=== PATIENT | female | born 1980 | race Caucasian/White ===

== ENCOUNTER 2023-06-22 09:32 | Emergency (ER) | payer OTHER, SELFPAY ==
[2023-06-22 09:37] VITALS: BP 157/112
--- NOTE | 2023-06-22 10:18 | ED.GENMED ---
History of Present Illness
General
Chief Complaint: DVT/Possible Blood Clot
Source: patient
Exam Limitations: none
Time Seen by Provider: 06/22/23 09:56
Nursing documentation reviewed up to this point in time: agreed with
Travel History
Have you had any contact with someone who has COVID-19?: No
Do you have any symptoms of coronavirus? Fever > 100 degrees, chills, cough, shortness of breath, sore throat, loss of taste or smell, muscle aches, or headache?: No
History of Present Illness
History of Present Illness:
43-year-old female with a past medical history of hypertension who presents to the emergency room for evaluation of left foot pain. Patient reports yesterday morning she woke up with 'soreness' in the left foot that was relatively mild and since
then it has progressed to severe pain in the left foot to the point that she cannot bear weight or even move the foot without significant pain. Pain is more lateral than medial but really in the whole foot. She says that the foot is cool to touch
and looks discolored. She has not noticed any significant swelling. She denies any injury or trauma. She denies similar symptoms in the past. She denies any personal history of DVT/PE but says that her sister in her 40s from a pulmonary
embolism. Patient denies any chest pain or shortness of breath here.
Review of Systems
Review of Systems
All Other Systems: ROS reviewed and negative except as documented in HPI and ROS
Constitutional: Denies fever or chills
Respiratory: Denies cough or trouble breathing
Cardiac: Denies chest pain, palpitations or syncope
ABD/GI: Denies abdominal pain, nausea or vomiting
: Denies flank pain
Musculoskeletal: Reports other (Left foot pain); Denies neck pain or back pain
Neurological: Denies headache, weakness or numbness
Phy Exam
Physical Exam
Physical Exam:
General: Awake, alert, oriented x3; anxious
Head: Normocephalic, atraumatic
Eyes: Conjunctiva normal,
Throat: Airway intact, handling secretions
Neck: Trachea midline, supple without meningismus
Lungs: Clear to auscultation bilaterally, no wheezing, rales, rhonchi
Heart: Regular rate and rhythm, no murmurs, gallops, or rubs
Neuro: Cranial nerves grossly intact, speech fluid
Skin: no rash
Extremities: Left lower extremity cool to touch left midfoot to the lateral malleolus with delayed capillary refill on the left foot and slight purplish discoloration of the left foot in the same very localized distribution; she does have DP pulse
on the left by Doppler; she has no palpable cord; she does have exquisite tenderness of the lateral aspect of the left lower leg and foot but no significant edema in the left lower extremity; she has no erythema of the skin, no crepitus; she has
pain with passive dorsiflexion of the foot on the left; right lower extremity warm well-perfused no edema good pulses
Scores
Heart Failure Risk
Heart Failure Risk Score: Not Applicable
Heart Score for Chest Pain Patients
STEMI patient?: Not applicable
Withdrawal Assessment of Alcohol
Withdrawal Assessment Completed?: Not applicable
Course
Orders/Labs/Results
Orders:
Orders
06/22/23 10:06
Lower Ext Arterial & MARTI US [US Periph Art LOWER Ext w MARTI] Urgent
Comment:
Reason For Exam: painful, cool LLE
06/22/23 10:07
US Periph Venous LOWER Ext LT Urgent
Comment:
Reason For Exam: painful, cool LLE
06/22/23 10:17
Vascular Surgery Consult Urgent
Consulting Provider: David Montes
Was physician already notified: Yes
06/22/23 11:20
Complete Blood Count/With Diff Urgent
Comprehensive Metabolic Panel Urgent
PTT Urgent
Prothrombin Time Urgent
06/22/23 12:03
Potassium Chloride [KCl] 40 meq PO NOW STA
06/22/23 12:50
Potassium Chloride Powder [Klor-Con] 20 meq PO NOW STA
06/22/23 12:52
Potassium Chloride [KCl] 40 meq .ROUTE .STK-MED ONE
06/22/23 15:16
CR Foot - Left Min 3 Views Urgent
Comment:
Reason For Exam: foot pain
Abnormal Lab Results
06/22/23
11:20
MCH 31.2 H pg
(27.0-31.0)
MCHC 37.1 H g/dL
(33.0-37.0)
MPV 10.8 H fL
(7.4-10.4)
Absolute Monos (auto) 0.8 H 10^3/uL
(0.1-0.6)
Monocytes % 14.0 H %
(1.7-9.3)
Potassium 3.0 L mmol/L
(3.5-5.1)
Total Protein 8.3 H g/dl
(6.3-8.2)
06/22/23 11:20
06/22/23 11:20
Vital Signs
Initial and Last Documented VS:
Initial Vital Signs
Temp Pulse Resp BP Pulse Ox
37.0 C 95 18 157/112 98
06/22/23 09:37 06/22/23 09:37 06/22/23 09:37 06/22/23 09:37 06/22/23 09:37
Last Documented Vital Signs
Temp Pulse Resp BP Pulse Ox
37.0 C 95 18 157/112 98
06/22/23 09:37 06/22/23 09:37 06/22/23 09:37 06/22/23 09:37 06/22/23 09:37
MDM/Problems Addressed
Differential Diagnosis Includes:
Arterial occlusion, DVT, cellulitis, musculoskeletal injury, early shingles, Raynaud's
MDM/Problems Addressed:
43-year-old female presents for evaluation of atraumatic and progressing left foot pain. Foot is slightly discolored (purple to pale), cool to the touch with diminished pulses DP on the left; no edema. She is hypertensive otherwise normal vitals.
Discussed with vascular surgery for evaluation. Will send for arterial and venous ultrasound of the left lower extremity. IV placed usual labs sent off including a CBC and a CMP, coags. Monitor closely reassess after the above.
Labs reviewed: CBC shows no clinically significant abnormalities. CMP shows hyponatremia repleted p.o. Venous and arterial ultrasounds normal. Vascular surgery did assess at bedside they do not suspect any vascular etiology to her symptoms.
Clinical reassessment she says her symptoms actually have improved greatly. For completeness we will check an x-ray of the foot although no trauma reported. At this point I do not suspect cellulitis�she has no warmth, no erythema, no edema, no
fever, no leukocytosis. Possibly this is a pain from occult trauma versus some peripheral neuropathy; early shingles is also a consideration she has had shingles in the past and her tenderness is localized and superficial. If x-ray normal will
plan for discharge have her follow-up with her primary for reassessment. I did explain that we can write her for Valtrex and if she notices a rash develop over the next few days she can take this. Otherwise she will rest, NSAIDs as needed and
follow-up with PCP. She feels very comfortable with this plan. Spoke about return precautions all questions answered.
X-ray shows old old looking chip fracture on the navicular; possible that she irritated this and is causing her pain, differential otherwise as above. Stable for discharge�she says her pain is actually improved without any intervention here and she
is ambulatory in ER. Spoke about return precautions all questions answered.
Acute Exacerbation and/or Progression of Chronic Illness:
Acutely hypertensive
Acute Exacerbation and/or Progression of Chronic Illness: HTN
*Radiology
Radiology exam reviewed: radiology read reviewed
*Pulse Oximetry
Patient hypoxic: no
*Critical Care Note
Total Time (30-74mins, 75-104mins- exclusive of procedures): Not Applicable
Data Reviewed
Source: patient and family (Son)
Patient Management
Discussion with other providers: Pharmacy Picking Technician (Discussed with vascular surgery) and Radiologist (Discussed with radiology)
ED Attending Note
-
Portions of this chart may have been created with voice recognition software.� Occasional wrong word or��sound alike� substitutions may have occurred due to the inherent limitations of voice recognition software.
Discharge Plan
Departure
Patient Disposition: Home (Routine Discharge)
Date of Disposition: 06/22/23
Time of Disposition: 16:21
Patient with high blood pressure during this ER visit?: Yes
Discharge Problem:
Left foot pain
Instructions: Shingles (DC)
Prescriptions:
New
valacyclovir [Valtrex] 1 gram tablet
1,000 mg PO TID 7 Days Qty: 21 0RF
No Action
chlorthalidone 50 mg Tablet
50 mg PO HS
valsartan 320 mg Tablet
320 mg PO HS
Patient Comments:
06/22/2023, pt. last filled this med. on 01/04/2023 for 90-day supply and admits to being non-compliant with this med.
Wegovy 2.4 mg/0.75 mL Pen Injector
2.4 mg SC FR@1800
potassium
2 gummy PO DAILY
Referrals:
NONE,* [Family Provider] -
Activity Restrictions/Additional Instructions:
Thank you for visiting the Emergency Department at [facility].
1. Please schedule a follow up appointment as directed. Call first thing tomorrow morning to make an appointment.
2. If indicated, please take your medications as instructed and indicated on discharge paperwork.
3. If any of your symptoms do not improve, or persist, or become more severe within 6-12 hours, please return to the emergency department for further care.
4. Please return to the emergency department if you develop a headache, neck pain/stiffness, fever greater than 100.4F, chest pain, shortness of breath, persistent nausea, vomiting, slurred speech, difficulty walking, numbness/tingling, weakness,
signs of infection or any other symptoms that are worrisome to you.
Please call [phone] if you have any questions.
Interventions
Interventions:
ED- Cardiac Assessment Last Done: 06/22/23 12:39
ED- Pulmonary Assessment Last Done: 06/22/23 12:39
--- NOTE | 2023-06-22 10:50 | CON.VAS ---
Addendum entered and electronically signed by David Montes MD 06/22/23 13:34:
Seen and examined with RICKIE Stoll and RICKIE Garcia. Agree with findings as noted below. 43-year-old female who woke up yesterday with pain in her left foot. When she started walking she noted the pain. Bore through it yesterday, but then last night
was much worse. Pain seems worse when she is attempting to ambulate or moving. She also noted to me some purplish discoloration of the left foot yesterday evening or earlier this morning but resolved now. She showed me a picture. Per a picture
of the entire left foot was slightly congested appearing. Her pain currently she notes is more of a tenderness and it is more on the dorsum/dorsal lateral aspect of the foot onto the ankle near the lateral malleolus. She notes some heaviness in
her left foot as well. No history of prior vascular issues. No history of DVTs though she has a family history of PE (sister of a PE). Cardiovascular risk factors include hypertension, active tobacco use (about a pack a week).
On exam/she is awake and alert. Head is normocephalic and atraumatic. Eyes are anicteric. Neck is soft without jugular venous distention. Breathing is unlabored. Abdomen is soft, nondistended, nontender. No pulsatile mass. Lower extremity
with 2+ femoral, popliteal, PT pulses easily palpable bilaterally. On the right side she has 1+/2+ DP pulse. The left-sided difficulty palpating DP. Her left dorsal lateral foot is slightly tender. Slightly cooler skin in this vicinity compared
to the rest of the foot. Toes are all pink currently. Brisk capillary refill. When I gripped the foot to check pulses she winces with some discomfort. She is able to move the foot but she seems weaker or secondary to pain slightly difficult to
tell.
Duplex/noninvasive studies reviewed. Multiphasic waveforms throughout bilateral lower extremity arteries including the continuous Doppler waveforms at the level of the pedal arteries. ABIs and TBI's are within normal limits on both sides.
Plan/ No evidence by exam or noninvasive studies of any arterial insufficiency. DVT ultrasound is negative. No clear-cut vascular etiology of her symptoms. Does not appear to be an embolic or atheroembolic phenomenon. Consider neurology
evaluation for any neurologic issue that may be causing this (left foot weakness, pain, sensitivity). I am not clear what is causing this. Discussed with emergency room staff.
Original Note:
Consultation
Consultation Request
Performing Provider: Simon
Reason for Consultation: Left foot pain/discoloration
Medical History
-
Chief Complaint: Left foot pain
History of Present Illness:
43-year-old female with past medical history hypertension (since 17 years ol), obesity on Wegovy here today for left foot pain. Patient states yesterday when she woke up her left foot was noticeably cooler, discolored, painful when she attempted to
ambulate. Today the pain worsened which led her to this ER visit. Pt also notes she was feeling unwell with nausea, vomiting, abdominal pain, back pain and achiness on Tuesday and Tuesday. She admits she was feeling back to her baseline on Tuesday.
Currently denies nausea, vomiting, abdominal pain, back pain, chest pain, shortness of breath, and muscle aches.
Patient seen at bedside in ultrasound this morning. Upon palpation of her foot patient visibly jumps. I was unable to palpate pulses due to palpation leading too painful. customer account technician was able to locate DP doppler signals and multiphasic flow
in the AT. Patient was not fully able to move her foot through plantarflexion and dorsiflexion. Patient admits it was very painful to do so, hard to tell if this is just due to pain. Patient admits to foot feeling '[id number].' But
otherwise sensation seems to be intact and equal to the right foot. Cap refill greater than 2 seconds on the left foot. Left hand also appears slightly dusky. Palpable bilateral radial pulses, +2 femoral pulses bilaterally, palpable bilateral PT
pulses. Neurologically intact.
Patient endorses a family history of from massive PE (sister in her 40s).
Venous ultrasound negative. Arterial ultrasounds within normal limits.
Past Medical History
Past Medical History: HTN (since 17yo) and Other (obesity on Wegovy)
Past Surgical History: None and Cholecystectomy
Social History
Tobacco: Smoker (1 pp week)
Drug: None
Living: With Family
Employment: Employed
Family History
Family History: Other (Sister PE in her 40's)
Allergies / Home Medications
Allergy/AdvReac Type Severity Reaction Status Date / Time
No Known Allergies Allergy Verified 06/22/23 09:37
Review of Systems
-
History Source: Patient
All other systems: Negative unless noted
Constitutional: Reports No Symptoms
EENT: Reports No Symptoms
Respiratory: Reports No Symptoms
Cardiac: Reports No Symptoms
Vascular: Reports Tingling (left foot)
Abdomen/GI: Reports No Symptoms
: Reports No Symptoms
Musculoskeletal: Reports Muscle Pain
Skin: Reports Other (left foot discoloration)
Neurological: Reports No Symptoms
Endocrine: Reports No Symptoms
Physical Exam
Vital Signs
Temp Pulse Resp BP Pulse Ox
98.6 F 95 18 157/112 98
06/22/23 09:37 06/22/23 09:37 06/22/23 09:37 06/22/23 09:37 06/22/23 09:37
Physical Exam
General: No Apparent Distress
HEENT: Normocephalic and Atraumatic
Respiratory: Non Labored Respirations
Cardiac: Negative JVD
Breast: Deferred by me
GI: Soft and Non Tender
Neuro: Awake, Alert and Oriented
Psych: Calm
Pulses: Left Dorsalis Pedis: Doppler and Left Posterior Tibial: Doppler
Assessment / Plan
-
43-year-old female with new onset left foot pain and discoloration
Plan:
-Art and venous US normal
-No vascular issues at this time
-Discussed with Dr. Montes
Data Reviewed
-
Ultrasound: Discussed with Physician
[2023-06-22 11:41] LABS: PT 14.2 Sec (11.4-14.6)
[2023-06-22 11:58] LABS: ALT (SGPT) 29 U/L (0-35); AST (SGOT) 33 U/L (14-36); Alkaline Phosphatase 56 U/L (38-126); Blood Urea Nitrogen 11 mg/dl (7-17); Calcium 9.4 mg/dl (8.4-10.2); Carbon Dioxide 27 mmol/L (22-30); Chloride 102 mmol/L (98-107); Glucose 93 mg/dl (70-99); Sodium 138 mmol/L (135-145); Total Bilirubin 1.1 mg/dl (0.2-1.3); Total Protein 8.3 g/dl (6.3-8.2); eGFR > 60.00
[2023-06-22 12:00] LABS: % Basophils 0.7 % (0-2); % Eosinophils 0.7 % (0-6); % Immature Granulocytes 0.2 % (0-0.5); % Lymphocytes 25.3 % (20.5-51.1); % Neutrophils 59.1 % (42.2-75.2); Absolute Lymphocytes 1.4 10^3/uL (1.2-3.4); Absolute Monocytes 0.8 10^3/uL (0.1-0.6); Absolute Neutrophils 3.2 10^3/uL (1.4-6.5); Hematocrit 41.2 % (37.0-47.0); Hemoglobin 15.3 g/dL (12.0-16.0); Mean Corp Hgb Conc. 37.1 g/dL (33.0-37.0); Mean Corpuscular Hgb 31.2 pg (27.0-31.0); Mean Corpuscular Volume 83.9 fL (81.0-99.0); Mean Platelet Volume 10.8 fL (7.4-10.4); Nucleated Red Blood Cells % 0 %; Platelet Count 312 10^3/uL (130-400); Red Blood Cell Count 4.91 10^6/uL (4.20-5.40); Red Cell Dist. Width 11.9 % (11.5-14.5); White Blood Cell Count 5.3 10^3/uL (4.8-10.8)
[2023-06-22] MEDS: KCL 40 MEQ PO (12:19)
== END 2023-06-22 16:57 | disposition home or self-care (01) ==
LOC: EMR 09:32
PROVIDERS: CONSULT PHYSICIAN Surgery Vascular Surgery; EMERGENCY PHYSICIAN Emergency Medicine
DX: M79.672 Pain in left foot (principal); I10 Essential (primary) hypertension; F17.210 Nicotine dependence, cigarettes, uncomplicated
CPT/HCPCS: 99285; 73630; 80053; 85025; 85610; 85730; 93922; 93925; 93971